=== PATIENT | female | born 1940 | race Caucasian/White ===

== ENCOUNTER → 2017-10-19 09:02 | Outpatient (CLI) | payer MEDICARE, OTHER, SELFPAY ==
--- NOTE | 2017-10-19 09:11 | XR_ITS ---
XR DEXA axial skeleton HISTORY: ITS.REASON: OSTEOPENIA ORDERING PHYSICIAN: Betty Toribio MD PATIENT AGE: 76 years COMPARISON: None FINDINGS: The BMD measured at the Forearm Radius 33% is 0.785 g/cm squared with a T score of -1.2. This is considered Osteopenic according to the World Health Organization criteria. Fracture risk is Moderate. Treatment is advised. Bilateral hip density has a T score of 0.7 IMPRESSION: Osteopenia with moderate fracture risk. Suggest treatment and follow-up exam in October 2019
== END ==
PROVIDERS: Family Provider Family Medicine; PCP Family Medicine; Visit Provider Family Medicine
DX: M85.89 Other specified disorders of bone density and structure, multiple sites (principal)
CPT/HCPCS: 77080

== ENCOUNTER → 2018-01-24 12:30 | Outpatient (CLI) | payer MEDICARE, OTHER, SELFPAY ==
--- NOTE | 2018-01-24 | XR_ITS ---
XR chest 2V HISTORY: History of smoking ITS.REASON: PRE-OP..EXSMOKER ORDERING PHYSICIAN: Betty Toribio MD PATIENT AGE: 77 years COMPARISON: 06/29/2016 FINDINGS: The cardiomediastinal silhouette and pulmonary vascularity are within normal limits. The lungs are clear without infiltrates, suspicious nodules, or pleural effusions. Degenerative changes are present in the lower thoracic spine and there are postsurgical changes of the lumbar spine. No acute bony abnormalities. IMPRESSION: No change with no acute finding
== END ==
PROVIDERS: PCP Family Medicine; Visit Provider Family Medicine
DX: Z01.818 Encounter for other preprocedural examination (principal)
CPT/HCPCS: 71046; 93005

== ENCOUNTER → 2019-01-11 12:14 | Outpatient (CLI) | payer MEDICARE, OTHER, SELFPAY ==
--- NOTE | 2019-01-11 12:20 | XR_ITS ---
PROCEDURE: XR WRIST LT MIN 3V CLINICAL INDICATION: ARTHROPATHY OF LT WRIST COMPARISON: No exams were available for comparison FINDINGS: There are mild osteoarthritic changes of the 1st metacarpal carpal joint with mild lateral subluxation of the 1st metacarpal. There is also prominence of the scapholunate space which may indicate scapholunate ligamentous injury. No fracture or dislocation. No lytic or blastic change. IMPRESSION: Osteoarthritic change. Mild prominence of the scapholunate space which may indicate ligamentous injury Dictated by: Binu Ramos MD 01/11/2019 12:50 Signed by: <Electronically signed by Binu Ramos MD in [facility]> 01/11/2019 12:50
== END ==
PROVIDERS: PCP Family Medicine; Visit Provider Family Medicine
DX: M19.032 Primary osteoarthritis, left wrist (principal)
CPT/HCPCS: 73110

== ENCOUNTER → 2019-04-04 13:19 | Outpatient (CLI) | payer MEDICARE, OTHER, SELFPAY ==
--- NOTE | 2019-04-04 13:23 | US_ITS ---
PROCEDURE: US EXTREMITY LT LIMITED CLINICAL INDICATION: LIPOMA OF LT UPPER ARM Soft tissue mass along the medial aspect of the wrist COMPARISON: No exams were available for comparison FINDINGS: There is a 3.6 x 1.6 x 3.5 cm area of slight decreased echogenicity with internal linear areas of increased echogenicity and no posterior acoustical shadowing corresponding to the palpable abnormality left wrist consistent with a lipoma IMPRESSION: Palpable abnormality left wrist appears represent a lipoma. Lipomas have a variable appearance on ultrasound. This could be confirmed with CT if clinically desired. Dictated by: Binu Ramos MD 04/04/2019 17:40 Electronically signed by Binu Ramos MD in [facility] 04/04/2019 17:40
== END ==
PROVIDERS: PCP Family Medicine; Visit Provider Family Medicine
DX: D17.22 Benign lipomatous neoplasm of skin and subcutaneous tissue of left arm (principal)
CPT/HCPCS: 76882

== ENCOUNTER → 2020-03-22 12:26 | Outpatient (CLI) | payer MEDICARE, SELFPAY ==
[2020-03-22 13:21] LABS: Basophils # 0.1 K/mm3 (0-0.2); Basophils % 0.7 % (0.1-2.0); Eosinophils # 0.3 K/mm3 (0.0-0.4); Eosinophils % 2.5 % (0.1-12.0); Hematocrit 44.4 % (37.0-47.0); Hemoglobin 14.7 g/dL (12.2-16.2); Lymphocytes # 1.8 K/mm3 (0.7-4.5); Lymphocytes % 15.9 % (10-50); Mean Corpuscular HGB Conc 33.1 g/dL (31.8-35.4); Mean Corpuscular Hemoglobin 32.6 pg (27.0-31.2); Mean Corpuscular Volume 98.3 fl (81-99); Mean Platelet Volume 7.5 fl (7.4-10.4); Monocytes # 0.9 K/mm3 (0.1-1.0); Monocytes % 7.9 % (1.7-9.3); Neutrophils # 8.3 K/mm3 (1.8-7.8); Neutrophils % 73.1 % (37.0-80.0); Platelet Count 239 K/mm3 (142-424); Red Blood Count 4.51 M/mm3 (4.20-5.40); Red Cell Distribution Width 13.3 % (11.5-17.5); White Blood Count 11.4 K/mm3 (4.8-10.8)
[2020-03-22 15:10] LABS: Strep Scrn Group A (Rapid) Negative (Negative)
[2020-03-23 16:12] LABS: Covid-19 Nasal PCR Sendout Lex Not Detected
== END ==
PROVIDERS: PCP Family Medicine; Visit Provider Nurse Practitioner
DX: Z03.818 Encounter for observation for suspected exposure to other biological agents ruled out (principal)
CPT/HCPCS: 36415; 85025; 87275; 87276; 87430; U0004

== ENCOUNTER → 2020-06-11 12:02 | Outpatient (CLI) | payer MEDICARE, OTHER, SELFPAY ==
--- NOTE | 2020-06-11 12:11 | CT_ITS ---
PROCEDURE: CT HEAD/BRAIN WO CON CLINICAL INDICATION: NECK PAIN COMPARISON: No exams were available for comparison TECHNIQUE: Axial images obtained. All CT scans at the facility use one or more dose reduction, viz: automated exposure control, ma/kV adjustment per patient size (including targeted exams where dose is matched to indication, i.e. head), or iterative reconstruction technique. FINDINGS: No midline shift, mass effect, intracranial hemorrhage, hydrocephalus, or extra-axial fluid collection is evident. There is dense basal ganglia calcifications and faint cortical calcifications of medial aspect of the temporal lobe on the right and left. There is generalized atrophy with hypoattenuation of the periventricular white matter consistent with microangiopathic changes.. The calvarium has an unremarkable appearance. There has been prior right occipital craniotomy . No sinus air-fluid level. Suspect retention cyst in the floor the left maxillary sinus only barely imaged. IMPRESSION: As above, no acute finding Dictated by: Binu Ramos MD 06/11/2020 13:29 Binu Ramos MD in [facility] 06/11/2020 13:29
== END ==
PROVIDERS: PCP Family Medicine; Visit Provider Family Medicine
DX: M54.2 Cervicalgia (principal)
CPT/HCPCS: 70450

== ENCOUNTER → 2021-03-20 14:12 | Outpatient (CLI) | payer MEDICARE, OTHER, SELFPAY ==
--- NOTE | 2021-03-20 14:15 | MM_ITS ---
PROCEDURE: MM DIG MAMM BI DX W/CAD Digital Breast Tomosynthesis Included Left breast ultrasound complete CLINICAL INDICATION: DISCHARGE FROM BREAST COMPARISON: [facility] GC MM DIG SCR JOSE L PANEL W/CAD from 04/30/2008 DX,MG MM MOBILE MAMMO DIGITAL SCREEN W CAD JOSE L from 05/12/2011 MG DMSB DIG MAMM-SCREEN JOSE L W/CAD from 08/11/2016 US US BREAST LT COMPLETE from 03/20/2021 TECHNIQUE: Bilateral diagnostic mammogram with left-sided breast ultrasound. FINDINGS: There are scattered areas of fibroglandular density Right breast: Benign-appearing nodule in the retroareolar region at 4 mm which may be related to an oil cyst. Additional partially calcified oil cyst in the superior retroareolar area. Mildly prominent axillary lymph nodes Left breast:. Small asymmetric density at approximately 4 mm in the upper inner aspect of the left breast central 1/3. Two asymmetric densities in the upper outer left breast posterior 1/3. These may be due to areas of asymmetric tissue as there is no sonographic correlate demonstrated. Mildly prominent axillary lymph nodes. Left breast ultrasound: No cystic or solid lesions demonstrated. IMPRESSION: Probably benign findings. No convincing evidence of malignancy. Asymmetric densities on the left for which six-month mammographic follow-up BI-RAD Category: 3 Probably Benign Finding Short Term Follow-Up FOLLOW-UP: 6M 6 Month Follow-up There are mildly prominent axillary lymph nodes bilaterally. Please correlate with clinical parameters and physical exam. Has the patient had a recent Covid19 vaccination? The nodes on the left do not appear significantly changed. The nodes on the right may be slightly larger. (A letter has been sent to the patient regarding results of the study.) Dictated by: Binu Ramos MD 03/26/2021 11:57 Binu Ramos MD in [facility] 03/26/2021 11:57
== END ==
PROVIDERS: PCP Family Medicine; Visit Provider Family Medicine
DX: N64.52 Nipple discharge (principal)
CPT/HCPCS: 76641; 77062; 77066; G0279

== ENCOUNTER → 2022-04-13 09:56 | Outpatient (CLI) | payer MEDICARE, OTHER, SELFPAY ==
[2022-04-13 20:24] LABS: Alanine Aminotransferase 18 U/L (12-78); Albumin Level 4.6 g/dl (3.5-5.0); Albumin/Globulin Ratio 1.9 (1.1-1.8); Alkaline Phosphatase 95 U/L (38-126); Anion Gap 20.1 mEq/L (5-15); Aspartate Amino Transferase 28 U/L (14-36); Bilirubin,Total 0.4 mg/dl (0.2-1.3); Blood Urea Nitrogen 17 mg/dl (7-17); Calcium 9.6 mg/dl (8.4-10.2); Carbon Dioxide 26 mmol/L (22.0-30.0); Chloride 98 mmol/L (98-107); Chol/HDL Ratio 2.6 (1-3.5); Cholesterol 172 mg/dl (140-200); Estimated Glomerular Filt Rate 81 ml/min (>60); GFR (African American) 98 ML/MIN (>60); Globulin 2.4 g/dL (1.3-3.2); Glucose 103 mg/dl (74-100); HDL Cholesterol 67 mg/dl (40-60); Potassium 4.1 mmoL/L (3.5-5.1); Sodium 140 mmol/L (136-145); Triglycerides 157 mg/dl (30-150); VLDL Cholesterol 31 mg/dL (0-40)
[2022-04-13 20:34] LABS: Direct LDL Cholesterol 69.25 mg/dL (100-129)
[2022-04-13 20:54] LABS: Thyroid Stimulating Hormone 1.78 uIU/mL (0.465-4.68)
[2022-04-13 21:05] LABS: Basophils # 0.1 K/mm3 (0-0.2); Basophils % 1.1 % (0.1-2.0); Eosinophils # 0.2 K/mm3 (0.0-0.4); Eosinophils % 2.8 % (0.1-12.0); Hematocrit 44.4 % (37.0-47.0); Hemoglobin 13.9 g/dL (12.2-16.2); Lymphocytes # 1.1 K/mm3 (0.7-4.5); Lymphocytes % 16.6 % (10-50); Mean Corpuscular HGB Conc 31.2 g/dL (31.8-35.4); Mean Corpuscular Hemoglobin 31.9 pg (27.0-31.2); Mean Corpuscular Volume 102.3 fl (81-99); Mean Platelet Volume 9.1 fl (7.4-10.4); Monocytes # 0.5 K/mm3 (0.1-1.0); Monocytes % 7.4 % (1.7-9.3); Neutrophils # 4.7 K/mm3 (1.8-7.8); Neutrophils % 72.2 % (37.0-80.0); Platelet Count 266 K/mm3 (142-424); Red Blood Count 4.35 M/mm3 (4.20-5.40); Red Cell Distribution Width 12.9 % (11.5-17.5); White Blood Count 6.5 K/mm3 (4.8-10.8)
[2022-04-13 21:13] LABS: Vitamin B12 987 pg/mL (239-931)
== END ==
PROVIDERS: PCP Nurse Practitioner; Visit Provider Nurse Practitioner
DX: E55.9 Vitamin D deficiency, unspecified (principal); E78.5 Hyperlipidemia, unspecified; F32.A Depression, unspecified; M19.90 Unspecified osteoarthritis, unspecified site; M79.644 Pain in right finger(s); Z85.3 Personal history of malignant neoplasm of breast; M85.80 Other specified disorders of bone density and structure, unspecified site
CPT/HCPCS: 80053; 80061; 82306; 82607; 84443; 85025

== ENCOUNTER 2022-08-18 10:00 | Outpatient (RCR) | payer MEDICARE, OTHER, SELFPAY ==
--- NOTE | 2022-07-28 14:42 | HMH.PTOPEV ---
PT Outpatient Evaluation Rehab PT Outpatient Evaluation Start: 07/28/22 14:24 Freq: Status: Active Protocol: Document 07/28/22 14:24 ANTONINA (Rec: 07/28/22 14:41 ANTONINA [id number]) E-signed By Dmitri Johnson, PT Outpatient Therapy Subjective History Subjective History Patient is a 81 year old female presenting to outpatient PT with reports of overall BLE weakness abd poor balance that has progressively gotten worse over the past 6 months. Comorbidities include hx of mastectomy (1 year), trigeminal neuralgia), LS sx x 2 and UKA R. Chief Complaint Gives out/Unstable,Weakness, Decreased Coordination Symptom Type Other Symptoms Relieved By Rest/Positioning Symptoms Aggravated By Standing,Physical Activity, Walking Prior Functional Limitations None Current Functional Limitations Housework,Standing,Walking, Stairs,Balance Balance Eval Subjective Hx of Complaint Comment Difficulty with all standing/ ablulatory activities. Chief Complaint vertigo Yes: intermittent dizziness Prior Functional Limitations Prior Functional [place] Level None Current Functional Limitations Comment difficulty with standing/ ambulatory activities. Hx of Falls Hx Falls Yes Number in last 6 months 3 Gait/Posture Asssessment General Gait Observation Narrow Based Gait Assistive Devices None / NA Level of Transfer Assist Independent Hip Observation in Gait Swing Circumducted [place] Feet Together/Eyes open/Stable Surface fail Feet Together/Eyes Closed/Stable Surface fail Feet Together/Eyes open/Unstable Surface fail Feet Together/Eyes Closed/Unstable fail Surface Dynamic Gait Index Test Protocol Gait Level Surface Normal Query Text: Instructions: Walk at your normal speed from here to the next marzena (20'). Grading: Marzena the lowest category that applies. Change in Gait Speed Normal Query Text: Instructions: Begin walking at your normal pace (for 5'), when I tell you go , walk as fast as you can (for 5'). When I tell you slow , walk as slowly as you can (for 5'). Grading: Marzena the lowest category that applies. Gait with Horizontal Head Turns Mild Impairment Query Te
== END 2022-08-18 10:05 | disposition home or self-care (01) ==
LOC: PT 10:00
PROVIDERS: PCP Nurse Practitioner; Visit Provider Nurse Practitioner
DX: R29.898 Other symptoms and signs involving the musculoskeletal system (principal); R26.89 Other abnormalities of gait and mobility; W19.XXXA Unspecified fall, initial encounter; Y92.009 Unspecified place in unspecified non-institutional (private) residence as the place of occurrence of the external cause
CPT/HCPCS: 97110; 97112; 97163; 97530

== ENCOUNTER 2024-02-24 19:13 | Outpatient (CLI) | payer MEDICARE, SELFPAY ==
[2024-02-24 19:34] LABS: Basophils # 0.1 K/mm3 (0-0.2); Basophils % 1.2 % (0.1-2.0); Eosinophils # 0.2 K/mm3 (0.0-0.4); Eosinophils % 3.1 % (0.1-12.0); Hemoglobin 13.6 g/dL (12.2-16.2); Lymphocytes # 0.8 K/mm3 (0.7-4.5); Mean Corpuscular HGB Conc 33.2 g/dL (31.8-35.4); Mean Corpuscular Hemoglobin 33.6 pg (27.0-31.2); Mean Platelet Volume 8.4 fl (7.4-10.4); Monocytes # 0.5 K/mm3 (0.1-1.0); Monocytes % 7.6 % (1.7-9.3); Neutrophils # 4.6 K/mm3 (1.8-7.8); Neutrophils % 75.2 % (37.0-80.0); Platelet Count 327 K/mm3 (142-424); Red Blood Count 4.05 M/mm3 (4.20-5.40); Red Cell Distribution Width 13.5 % (11.5-17.5); White Blood Count 6.1 K/mm3 (4.8-10.8)
[2024-02-24 20:09] LABS: Alanine Aminotransferase 23 U/L (12-78); Albumin Level 4.6 g/dl (3.5-5.0); Albumin/Globulin Ratio 1.8 (1.1-1.8); Alkaline Phosphatase 86 U/L (38-126); Anion Gap 7.5 mEq/L (5-15); Aspartate Amino Transferase 31 U/L (14-36); Bilirubin,Total 0.7 mg/dl (0.2-1.3); Blood Urea Nitrogen 19 mg/dl (7-17); Calcium 9.7 mg/dl (8.4-10.2); Carbon Dioxide 23 mmol/L (22.0-30.0); Chloride 110 mmol/L (98-107); Chol/HDL Ratio 2.3 (1-3.5); Cholesterol 173 mg/dl (140-200); Estimated Glomerular Filt Rate 96 ml/min (>60); GFR (African American) 116 ML/MIN (>60); Globulin 2.5 g/dL (1.3-3.2); Glucose 113 mg/dl (74-100); HDL Cholesterol 76 mg/dl (40-60); Potassium 4.5 mmoL/L (3.5-5.1); Sodium 136 mmol/L (136-145); Total Protein,Serum 7.1 g/dl (6.3-8.2); Triglycerides 124 mg/dl (30-150); VLDL Cholesterol 25 mg/dL (0-40)
[2024-02-24 20:15] LABS: Hemoglobin A1C 5.6 % (4.0-6.0)
[2024-02-24 20:20] LABS: Direct LDL Cholesterol 67.33 mg/dL (100-129)
[2024-02-24 20:26] LABS: 25-OH Vitamin D, Total 30.3 ng/mL (30-100)
[2024-02-24 20:58] LABS: Vitamin B12 862 pg/mL (239-931)
[2024-02-24 21:46] LABS: Thyroid Stimulating Hormone 1.32 uIU/mL (0.465-4.68)
== END 2024-02-24 23:59 | disposition home or self-care (01) ==
LOC: LAB 19:17
PROVIDERS: PCP Nurse Practitioner; Visit Provider Nurse Practitioner
DX: E78.5 Hyperlipidemia, unspecified (principal); E55.9 Vitamin D deficiency, unspecified; E66.9 Obesity, unspecified; Z13.1 Encounter for screening for diabetes mellitus
CPT/HCPCS: 80053; 80061; 82306; 82607; 83036; 84443; 85025

== ENCOUNTER 2024-08-08 11:58 | Outpatient (CLI) | payer MEDICARE, SELFPAY ==
--- NOTE | 2024-08-08 12:01 | XR_ITS ---
FINAL REPORT CLINICAL HISTORY: right 2nd toe pain. STUBBED TOE ON SHOPPING CART THROUGH SHOE. COMPARISON: None FINDINGS: 3 views of the right toes were obtained. There is a fracture of the head of the middle phalanx of the second toe with lateral displacement of the distal fragment. Multijoint degenerative disease is noted. There is soft tissue edema of the second toe. IMPRESSION: Second toe fracture as above. Reviewed, Interpreted and Dictated by Maria De Jesus Rincon MD Transcribed by Tatianna Villegas Authenticated and . [facility]
[2024-08-08 18:25] LABS: Basophils # 0.1 K/mm3 (0-0.2); Basophils % 0.9 % (0.1-2.0); Eosinophils # 0.2 K/mm3 (0.0-0.4); Eosinophils % 2.4 % (0.1-12.0); Hematocrit 41.7 % (37.0-47.0); Hemoglobin 13.7 g/dL (12.2-16.2); Lymphocytes # 0.9 K/mm3 (0.7-4.5); Lymphocytes % 13.2 % (10-50); Mean Corpuscular HGB Conc 32.9 g/dL (31.8-35.4); Mean Corpuscular Hemoglobin 32.8 pg (27.0-31.2); Mean Corpuscular Volume 99.8 fl (81-99); Mean Platelet Volume 10.4 fl (7.4-10.4); Monocytes # 0.6 K/mm3 (0.1-1.0); Monocytes % 8.9 % (1.7-9.3); Neutrophils % 74.3 % (37.0-80.0); Platelet Count 213 K/mm3 (142-424); Red Blood Count 4.18 M/mm3 (4.20-5.40); Red Cell Distribution Width 13.2 % (11.5-17.5); White Blood Count 6.7 K/mm3 (4.8-10.8)
[2024-08-08 19:40] LABS: Alanine Aminotransferase 19 U/L (12-78); Albumin Level 4.4 g/dl (3.5-5.0); Alkaline Phosphatase 67 U/L (38-126); Anion Gap 12.4 mEq/L (5-15); Aspartate Amino Transferase 27 U/L (14-36); Bilirubin,Total 0.5 mg/dl (0.2-1.3); Blood Urea Nitrogen 22 mg/dl (7-17); Calcium 9.7 mg/dl (8.4-10.2); Carbon Dioxide 23 mmol/L (22.0-30.0); Chloride 109 mmol/L (98-107); Estimated Glomerular Filt Rate 60 ml/min (>60); GFR (African American) 73 ML/MIN (>60); Globulin 2.2 g/dL (1.3-3.2); Glucose 100 mg/dl (74-100); Potassium 4.4 mmoL/L (3.5-5.1); Sodium 140 mmol/L (136-145); Total Protein,Serum 6.6 g/dl (6.3-8.2); Uric Acid 4.1 mg/dl (2.5-6.2)
== END 2024-08-08 23:59 | disposition home or self-care (01) ==
LOC: RAD 11:59
PROVIDERS: PCP Nurse Practitioner; Visit Provider Nurse Practitioner
DX: M79.674 Pain in right toe(s) (principal)
CPT/HCPCS: 73660; 80053; 84550; 85025